=== PATIENT | female | born 1985 | race Caucasian/White ===

== ENCOUNTER 2022-05-09 13:46 | Emergency (ER) | payer BC, SELFPAY ==
--- NOTE | 2022-05-09 13:52 | ED.URI ---
HPI - URI/Sore Throat General Chief Complaint: Upper Respiratory Infection Stated Complaint: Sore throat Time Seen by Provider: 05/09/22 13:52 Source: patient and RN notes reviewed History of Present Illness HPI Narrative: Patient is a 36-year-old female who presents the urgent care with complaints of a sore throat. Patient states that she woke up with a sore throat today. States that she is from out of town in [place] and came to the urgent care when they got into town. Patient had COVID 2 weeks ago. States that her son went back to daycare last week and now has [id number]-[id number]-[id number]-mouth. Patient states that she has no blistering to the hands or feet and there is her son. States that his only area affected was his oromucosa. Patient denies any known blistering in the mouth. Denies any fevers, nausea, vomiting or other upper respiratory complaints. Denies of any ill contacts. Patient states that her doctor told her to take TheraFlu and Mucinex. No other acute complaints. No acute distress noted. Patient aware of plan of care. Some parts of this dictation were generated by voice recognition software and may contain typographical and/or grammatical inaccuracies. Related Data Home Medications Medication Instructions Recorded Confirmed norethindrone (contraceptive) 0.35 tablet 05/09/22 mg tablet phentermine 7.5 mg-topiramate ER cap PO 05/09/22 46 mg capsule,ext.release 24hr mphase (Qsymia) Allergies Allergy/AdvReac Type Severity Reaction Status Date / Time No Known Allergies Allergy Verified 05/09/22 14:06 Review of Systems Review of Systems: CONSTITUTIONAL: Denies fever, chills, or sweats. EYES: Denies visual changes, redness, or discharge. ENT: Denies rhinorrhea, congestion,or otalgia. Reports of sore throat CARDIOVASCULAR: Denies chest pain, palpitations, or edema. RESPIRATORY: Denies cough or dyspnea. GASTROINTESTINAL: Denies abdominal pain, nausea, vomiting, or diarrhea. GENITOURINARY: Denies dysuria or hematuria. SKIN: Denies rash or itching. MUSCULOSKELETAL: Denies back pain, joint pain, or myalgia. NEUROLOGIC: Denies headache, numbness, or weakness. All other systems reviewed are negative, except as documented in HPI. PMFSH Comments At the time of my signature, I reviewed and agree with the nursing past medical, surgical, social, and family history. There is no relevant family history pertinent to the patient complaint. Exam Narrative: GENERAL: This is a well-nourished, well-developed patient, in no apparent distress. HEAD: normocephalic, atraumatic. EYES: PERRL. Sclera clear/white. Vision is grossly intact. EARS: External ears normal, auditory canals clear and without drainage, TMs normal without perforation. Hearing grossly intact. NOSE: External nose normal with no obvious nasal discharge, nares without redness, no rhinorrhea. THROAT: Mucous membranes moist, mild erythema noted posterior pharynx with mild postnasal drainage NECK: Neck supple, non-tender without lymphadenopathy CARDIOVASCULAR: Regular rate and rhythm without murmurs, gallops, or rubs. RESPIRATORY: Clear to auscultation. Breath sounds equal bilaterally. No wheezes, rales, or rhonchi. SKIN: warm, intact with no suspicious lesions or rash, good texture and turgor. NEURO: awake, alert, and oriented to person, place and time. There were no obvious focal neurologic abnormalities. EXTREMITIES: No clubbing, cyanosis, or edema. Course Course Level of Care: Express Care Visit Vital Signs Vital signs: Vital Signs Temperature 98.7 F 05/09/22 13:53 Pulse Rate 84 05/09/22 13:53 Respiratory Rate 16 05/09/22 13:53 Blood Pressure 151/101 H 05/09/22 13:53 Pulse Oximetry 99 05/09/22 13:53 Oxygen Delivery Room Air 05/09/22 13:53 Temperature 98.7 F 05/09/22 13:53 Pulse Rate 84 05/09/22 13:53 Respiratory Rate 16 05/09/22 13:53 Blood Pressure 151/101 H 05/09/22 13:53 Pulse Oximetry 99 05/09/22 13:53 Oxyg
[2022-05-09 13:53] VITALS: BP 151/101; PULSE 84; RESP 16; TEMP 37.1; O2SAT 99
== END 2022-05-09 14:20 | disposition home or self-care (01) ==
PROVIDERS: Emergency Provider Nurse Practitioner Family
DX: J02.9 Acute pharyngitis, unspecified (principal)
CPT/HCPCS: 87081; 87880; 99213; G0463